=== PATIENT | female | born 2000 | race Caucasian/White ===

== ENCOUNTER 2019-12-03 17:53 | Inpatient (IN) | payer MEDICAID ==
[2019-12-03] MEDS ORDERED: BETAMET ACET/BETAMET NA INJ 6 MG/1 ML IM ONE (18:12)
[2019-12-03] MEDS ORDERED: RINGERS SOLUTION,LACTATED 1,000 ML IV ONE (18:13)
[2019-12-03] MEDS ORDERED: BETAMET ACET/BETAMET NA INJ 6 MG/1 ML ONE (18:18)
[2019-12-03] MEDS ORDERED: AMPICILLIN SOD INJ 2 GM VIAL ONE (18:19)
[2019-12-03 18:46] LABS: ABSOLUTE BASOPHILS # (AUTO) 0.1 10^3/uL (0.0-0.2); ABSOLUTE EOSINOPHILS # (AUTO) 0.1 10^3/uL (0.0-0.6); ABSOLUTE LYMPHOCYTES (AUTO) 2.5 10^3/uL (0.5-4.7); ABSOLUTE MONOCYTES (AUTO) 0.7 10^3/uL (0.1-1.4); ABSOLUTE NEUT (AUTO) 10.3 10^3/uL (1.7-8.2); BASOPHILS % (AUTO) 0.5 % (0-2); EOSINOPHILS % (AUTO) 0.5 % (0-6); HEMATOCRIT 36.8 % (36.0-47.0); HEMOGLOBIN 12.5 g/dL (12.0-15.5); LYMPHOCYTES % (AUTO) 18.4 % (13-45); MEAN CORPUSCULAR VOLUME 88 fl (80-97); MONOCYTES % (AUTO) 5.1 % (3-13); PLATELET COUNT 171 10^3/uL (150-450); RED BLOOD COUNT 4.17 10^6/uL (3.72-5.28); RED CELL DISTRIBUTION WIDTH 12.5 % (11.5-14.0); SEGMENTED NEUTROPHILS % (AUTO) 75.5 % (42-78); TOTAL CELLS COUNTED % (AUTO) 100 %; WHITE BLOOD COUNT 13.6 10^3/uL (4.0-10.5)
[2019-12-03] MEDS ORDERED: DIPHENHYDRAMINE HCL 50 MG/ML VIAL ONE (18:55)
[2019-12-03] MEDS ORDERED: AMPICILLIN SODIUM 2 GM in NORMAL SALINE 100 ML IV ONE (19:00)
--- NOTE | 2019-12-03 19:46 | Admission Physical ---
Datetime Report Generated by CPN: 12/03/2019 19:45 CURRENT ADMISSION Chief Complaint: Other Chief Complaint Other: Spontaneous Rupture of Membranes--verified in the office Indication for Induction: Not Applicable Admit Impression : , Intrauterine ; No Active Labor; Ruptured Membranes Admit Plan: Admit to Unit; Initiate Labor Augmentation Protocol ALLERGIES Medication Allergies: No Medication Allergies: ampicillin (12/03/2019) Latex: No Latex Allergies OBSTETRICAL HISTORY EDC: 01/03/2020 00:00 : 3 Para: 1 Term: 1 : 0 SAB: 0 Ectopic: 0 Livin Cesareans: 0 VBACs: 0 Multiple Births: 0 Gestational Diabetes: No Rh Sensitization: No Incompetent Cervix: No NENO: No Infertility: No ART Treatment: No Uterine Anomaly: No IUGR: No Hx Previous C/S: No Macrosomia: No Hx Loss/Stillborn: No PIH: No Hx : No Placenta Previa/Abruption: No Depression/PP Depression: No PTL/PROM: No Post Hemorrhage: No Current Procedures: Ultrasound; NST Obstetrical History Comments: G1 - SAB at 13 yrs old G2 - 2017 G3 - Current SEE RECORDS Alcohol: No Marijuana : No Cocaine: No Other Illicit Drugs: No Cigarettes: Current Some Day Smoker. [id number] Cigarette Frequency: < 5 per day Cigarette Comments: verbalized she stopped 3 months ago MEDICAL HISTORY Diabetes: No Blood Transfusion: No Pulmonary Disease (Asthma, TB): No Breast Disease: No Hypertension: No Sole Rounder Surgery: No Heart Disease: No Hosp/Surgery: No Autoimmune Disorder: No Anesthetic Complications: No Kidney Disease: No Abnormal Pap Smear: No Neuro/Epilepsy: No Psychiatric Disorders: No Other Medical Diseases: No Hepatitis/Liver Disease: No Significant Family History: No Varicosities/Phlebitis: No Trauma/Violence : No Thyroid Dysfunction: No INFECTIOUS HISTORY Gonorrhea: No Genital Herpes: No Chlamydia: No Tuberculosis: No Syphilis: No Hepatitis: No HIV/AIDS Exposure: No Rash or Viral Illness: No HPV: No PHYSICAL EXAM General: Normal HEENT: Normal Neurologic: Normal Thyroid: Normal Heart: Normal Lungs: Normal Breast: Normal Back: Normal Abdomen: Normal Genitourinary Exam: Normal Extremities: Normal DTRs: Normal Pelvic Type: Adequate Vital Signs: Reviewed; Within Normal Limits VAGINAL EXAM Dilatation: N/A Contraction Comments: irregular MEMBRANES Pooling: Positive Membranes: Ruptured Amniotic Fluid Color: Clear FETUS A EGA: 35.4 Monitoring: External US FHR- Baseline: 120s Variability: Moderate 6-25bpm Accelerations: 15X15 Decelerations: None FHR Category: Category I Admit Comment: This w/ an IUP at 35.4 presents to [facility] after being evaluated at the office with PPROM. Her suspicion was verified at the office. She reports good movement. Pt given rescue dose of Betamethsone and Ampicillin started for GBS prophylaxis. Pt is currently comfortable. She will be giving the baby up for adoption. PLANS FOR LABOR AND DELIVERY Labor and Delivery: Other, Specify Pain Management: Epidural Feeding Preference: Formula Benefit of Breast Feed Discussed: Yes Circumcision: No INFORMED CONSENT Signature: with User ID: [email or web address]
[2019-12-03 19:53] LABS: URINE AMPHETAMINES SCREEN NEGATIVE; URINE BARBITURATES SCREEN NEGATIVE; URINE BENZODIAZEPINES SCREEN NEGATIVE; URINE COCAINE SCREEN NEGATIVE; URINE MARIJUANA (THC) SCREEN NEGATIVE; URINE METHADONE SCREEN NEGATIVE; URINE PHENCYCLIDINE SCREEN NEGATIVE
[2019-12-03] MEDS ORDERED: CLINDAMYCIN 900 MG/D5W RTU 900 MG/50 ML RTUPB IV ONE (19:57)
[2019-12-03 21:04] LABS: CHLAM PCR NOT DETECTED (NOT DETECT)
[2019-12-03] MEDS ORDERED: OXYTOCIN/NORMAL SALINE 20 UNIT/1,000 ML RTUINJ ONE (22:50)
[2019-12-04] MEDS ORDERED: CLINDAMYCIN 900 MG/D5W RTU 900 MG/50 ML RTUPB IV ONE (03:55)
[2019-12-04] MEDS: CLINDAMYCIN 900 MG/D5W RTU 900 MG/50 ML RTUPB IV SCH ×4 (04:04→21:07)
[2019-12-04] MEDS ORDERED: EPHEDRINE SULFATE INJ 50 MG/1 ML AMPULE ONE (06:51)
[2019-12-04] MEDS ORDERED: FENTANYL/BUPIVACAINE/NS/PF 300 MCG/150 ML RTUINJ EPI ONE (06:52)
[2019-12-04] MEDS ORDERED: BUPIVACAINE HCL 0.25 % INJ/PF (2.5 MG/1 ML) 30 ML VIAL ONE (06:52)
[2019-12-04] MEDS ORDERED: OXYTOCIN 10 UNIT/ML VIAL ONE (07:12)
[2019-12-04] MEDS ORDERED: LIDOCAINE 1% INJ-PF (10 MG/ML) 30 ML SDV ONE (07:12)
[2019-12-04] MEDS ORDERED: MISOPROSTOL 0.2 MG TABLET ONE (07:12)
[2019-12-04] MEDS ORDERED: DIPH/PERTUSS(ACELL)/TETANUS VAC/PF 0.5 ML SYR (>=10YO) IM PRN (07:53)
[2019-12-04] MEDS ORDERED: DIBUCAINE 1% OINTMENT 28 GM TP PRN (07:53)
[2019-12-04] MEDS ORDERED: MISOPROSTOL 0.2 MG TABLET PR PRN (07:53)
[2019-12-04] MEDS ORDERED: OXYTOCIN/NORMAL SALINE 20 UNIT/1,000 ML RTUINJ IV PRN (07:53)
[2019-12-04] MEDS ORDERED: BENZOCAINE/MENTHOL AEROSOL SPRAY 56 ML TOP PRN (07:53)
[2019-12-04] MEDS ORDERED: ZOLPIDEM TARTRATE 5 MG TABLET PO PRN (07:53)
[2019-12-04] MEDS ORDERED: FERROUS SULFATE 325 MG TABLET PO ONE (09:17)
[2019-12-04] MEDS ORDERED: SENNOSIDES/DOCUSATE 8.6-50 MG 1 EACH TABLET ONE (09:17)
[2019-12-04] MEDS ORDERED: DOCUSATE SODIUM 100 MG CAPSULE ONE (09:17)
[2019-12-04] MEDS ORDERED: PRENATAL VITAMIN W DHA CAPSULE PO ONE (09:17)
[2019-12-04] MEDS: FERROUS SULFATE 325 MG TABLET PO SCH ×2 (09:23→18:45)
[2019-12-04] MEDS: DOCUSATE SODIUM 100 MG CAPSULE PO SCH ×2 (09:23→18:45)
[2019-12-04] MEDS: PRENATAL VITAMIN W DHA CAPSULE PO SCH (09:23)
[2019-12-04] MEDS: SENNOSIDES/DOCUSATE 8.6-50 MG 1 EACH TABLET PO SCH (09:24)
--- NOTE | 2019-12-04 10:28 | Delivery Summary ---
Del Sum A-C Datetime Report Generated by CPN: 12/04/2019 10:27 DELIVERY PERSONNEL DELIVERY PERSONNEL: [id number] Delivery Doctor:: Seema Smith MD Labor and Delivery Nurse:: Paris Cullen RN Nursery Nurse:: Gage Rahman RN Nursery Nurse:: Mikayla Alonso RN Surface Hydrologist/PIT FURNACE OPERATOR: Roxy Link CNA II Surface Hydrologist/PIT FURNACE OPERATOR: Magda Espinoza, CLINICAL INFORMATION SYSTEMS DIRECTOR MATERNAL INFORMATION Delivery Anesthesia: Epidural Medications After Delivery: Pitocin Drip 20 Units/1000ml NSS; Cytotec 1000mcg Per Rectum/Vagina Delivery QBL: 200 Delivery QBL Comment: 200 Maternal Complications: Precipitous Labor (<3hrs) Provider Comments: of a viable male at 0738 w/ an OA presentation; APGARS pending; no lacs LABOR SUMMARY EDC: 01/03/2020 00:00 No. Babies in Womb: 1 Attempted: No Labor Anesthesia: Epidural LABOR INFORMATION Reason for Induction: Not Applicable Complete Dilatation: 12/04/2019 07:00 Oxytocin: Augmentation Group B Beta Strep: Unknown Antibiotics # of Doses: 2 Antibiotics Time of Last Dose: 0400 Name of Antibiotic Given: Clindamycin Steroids Given: Partial Course Reason Steroids Not Administered: Not Applicable MEMBRANES Membranes Rupture Method: Spontaneous Rupture of Membranes: 12/03/2019 15:00 Length of Rupture (hr): 16.63 Amniotic Fluid Color: Clear Amniotic Fluid Amount: Large Amniotic Fluid Odor: Normal STAGES OF LABOR Stage 2 hr: 0 Stage 2 min: 38 Stage 3 hr: 0 Stage 3 min: 4 VAGINAL DELIVERY Episiotomy: None Laceration #1: None Laceration Extension #1: N/A Laceration Repair: Not Applicable Sponge Count Correct: Yes Sharps Count Correct: Yes CSECTION DELIVERY Primary Indication: N/A Secondary Indication: N/A CSection Incidence: N/A Labor: N/A Elective: N/A CSection Incision: N/A BABY A INFORMATION Infant Delivery Date/Time: 12/04/2019 07:38 Method of Delivery: Vaginal Born in Route : No : N/A Forceps: N/A Vacuum Extraction: N/A Shoulder Dystocia : No PRESENTATION/POSITION BABY A Presentation: Cephalic Cephalic Presentation: Vertex Vertex Position: Occipital Anterior Breech Presentation: N/A PLACENTA INFORMATION BABY A Placenta Delivery Time : 12/04/2019 07:42 Placenta Method of Delivery: Spontaneous Placenta Status: Delivered SCORES BABY A Heart Rate 1 min: >100 bpm Resp Effort 1 min: Slow, Irregular Reflex Irritability 1 min: Cough or Sneeze or Pulls Away Muscle Tone 1 min: Active Motion Color 1 min: Body [place], Extremities Blue Resuscitation Effort 1 min: Tactile Stimulation SCORE 1 MIN: 8 Heart Rate 5 min: >100 bpm Resp Effort 5 min: Good Cry Reflex Irritability 5 min: Cough or Sneeze or Pulls Away Muscle Tone 5 min: Active Motion Color 5 min: Body [place], Extremities Blue Resuscitation Effort 5 min: Tactile Stimulation SCORE 5 MIN: 9 INFANT INFORMATION BABY A Gestational Age at Delivery: 35.5 Gestational Status: Late - 34- 36.6 Weeks Infant Outcome : Liveborn Condition : Stable Infant Sex: Male IDENTIFICATION BABY A Infant Verification Date/Time: 12/04/2019 07:52 ID Band Number: [id number] Mother's Name Verified: Yes Infant RN Verifying Infant: JNiebuhr,RN Additional Verifying Personnel: AMorgan,RN WEIGHT/LENGTH BABY A Infant Birthweight (gm): 2530 Infant Weight (lb): 5 Weight (oz): 9 Infant Length (in): 17.50 Length (cm): 44.45 CORD INFORMATION BABY A No. Cord Vessels: 3 Nuchal Cord : N/A Cord Blood Taken: Yes-For Storage (Mom's Blood type +) Suction: Mouth ASSESSMENT BABY A Skin to Skin: Yes BABY B INFORMATION : N/A SIGNATURES Signature: with User ID: [email or web address]
[2019-12-04] MEDS: IBUPROFEN 800 MG TABLET PO SCH ×2 (15:01→21:08)
[2019-12-05] MEDS: CLINDAMYCIN 900 MG/D5W RTU 900 MG/50 ML RTUPB IV SCH (05:04)
[2019-12-05] MEDS: IBUPROFEN 800 MG TABLET PO SCH (05:05)
[2019-12-05 06:57] LABS: HEMATOCRIT 34.6 % (36.0-47.0); HEMOGLOBIN 11.9 g/dL (12.0-15.5); MEAN CORPUSCULAR HEMOGLOBIN 30.2 pg (27.0-33.4); MEAN CORPUSCULAR HGB CONC 34.5 g/dL (32.0-36.0); MEAN CORPUSCULAR VOLUME 88 fl (80-97); PLATELET COUNT 173 10^3/uL (150-450); RED BLOOD COUNT 3.95 10^6/uL (3.72-5.28); RED CELL DISTRIBUTION WIDTH 12.6 % (11.5-14.0); WHITE BLOOD COUNT 19.9 10^3/uL (4.0-10.5)
[2019-12-05 10:49] VITALS: BP 100/64
[2019-12-05] MEDS: PRENATAL VITAMIN W DHA CAPSULE PO SCH (10:50)
[2019-12-05] MEDS: FERROUS SULFATE 325 MG TABLET PO SCH (10:50)
[2019-12-05] MEDS: SENNOSIDES/DOCUSATE 8.6-50 MG 1 EACH TABLET PO SCH (10:58)
[2019-12-05] MEDS: DOCUSATE SODIUM 100 MG CAPSULE PO SCH (10:58)
--- NOTE | 2019-12-05 10:58 | PDOC DISCHARGE SUMMARY ---
Impression - Admit/DC Date/PCP Admission Date/Primary Care Provider: 12/03/19 17:53 JESUS العراقي, Discharge Date: 12/05/19 - Discharge Diagnosis (1) premature rupture of membranes (PPROM) delivered, current hospitalization Is this a current diagnosis for this admission?: Yes (2) Normal vaginal delivery Is this a current diagnosis for this admission?: Yes - Additional Information Discharge Diet: Regular Discharge Activity: Balance Activity w/Rest, Pelvic Rest Referrals: [facility] [Provider Group] Prescriptions: Ibuprofen [Motrin 800 mg Tablet] 800 mg PO Q8HP PRN #60 tablet PRN Reason: Home Medications: No122/Iron/Folic Acid [ Multi Tablet] 1 each PO DAILY 12/03/19 Ibuprofen [Motrin 800 mg Tablet] 800 mg PO Q8HP PRN #60 tablet 12/05/19 HPI Gestational Age: 35+4 Reason(s) for Admission: Induction of Labor, PROM Procedures: NST Intrapartum Procedure(s): Spontaneous Vaginal Delivery Results Laboratory Results: WBC 19.9 10^3/uL (4.0-10.5) H 12/05/19 06:13 RBC 3.95 10^6/uL (3.72-5.28) 12/05/19 06:13 Hgb 11.9 g/dL (12.0-15.5) L 12/05/19 06:13 Hct 34.6 % (36.0-47.0) L 12/05/19 06:13 MCV 88 fl (80-97) 12/05/19 06:13 MCH 30.2 pg (27.0-33.4) 12/05/19 06:13 MCHC 34.5 g/dL (32.0-36.0) 12/05/19 06:13 RDW 12.6 % (11.5-14.0) 12/05/19 06:13 Plt Count 173 10^3/uL (150-450) 12/05/19 06:13 Lymph % (Auto) 18.4 % (13-45) 12/03/19 18:32 [place]ancock % (Auto) 5.1 % (3-13) 12/03/19 18:32 Eos % (Auto) 0.5 % (0-6) 02/05/20 18:32 Baso % (Auto) 0.5 % (0-2) 12/03/19 18:32 Absolute Neuts (auto) 10.3 10^3/uL (1.7-8.2) H 12/03/19 18:32 Absolute Lymphs (auto) 2.5 10^3/uL (0.5-4.7) 12/03/19 18:32 Absolute Monos (auto) 0.7 10^3/uL (0.1-1.4) 12/03/19 18:32 Absolute Eos (auto) 0.1 10^3/uL (0.0-0.6) 12/03/19 18:32 Absolute Basos (auto) 0.1 10^3/uL (0.0-0.2) 12/03/19 18:32 Seg Neutrophils % 75.5 % (42-78) 12/03/19 18:32 Urine Opiates Screen NEGATIVE 12/03/19 18:08 Urine Methadone Screen NEGATIVE 12/03/19 18:08 Ur Barbiturates Screen NEGATIVE 12/03/19 18:08 Ur Phencyclidine Scrn NEGATIVE 12/03/19 18:08 Ur Amphetamines Screen NEGATIVE 12/03/19 18:08 U Benzodiazepines Scrn NEGATIVE 12/03/19 18:08 Urine Cocaine Screen NEGATIVE 12/03/19 18:08 U Marijuana (THC) Screen NEGATIVE 12/03/19 18:08 RPR NONREACTIVE (NONREACTIVE) 12/03/19 18:32 Chlamydia DNA (PCR) NOT DETECTED (NOT DETECT) 12/03/19 18:08 N.gonorrhoeae DNA (PCR) NOT DETECTED (NOT DETECT) 12/03/19 18:08 Blood Type A POSITIVE 12/03/19 18:32 Antibody Screen NEGATIVE 12/03/19 18:32 Plan Plan of Treatment: follow up at [facility] in 2 weeks for depression screen and nexplanon counseling
== END 2019-12-05 12:50 | disposition home or self-care (01) | DRG 807 ==
LOC: LR 17:53 → 2S 12-04 10:15
PROVIDERS: ADMIT Obstetrics & Gynecology; ATTEND Obstetrics & Gynecology
PROC: 10E0XZZ Delivery of Products of Conception, External Approach (ICD-10-PCS; principal; 2019-12-04)
PROC: 3E0234Z Introduction of Serum, Toxoid and Vaccine into Muscle, Percutaneous Approach (ICD-10-PCS; 2019-12-04)
DX: O42.013 Preterm premature rupture of membranes, onset of labor within 24 hours of rupture, third trimester (principal); Z37.0 Single live birth; O62.3 Precipitate labor; O99.334 Smoking (tobacco) complicating childbirth; F17.210 Nicotine dependence, cigarettes, uncomplicated; Z3A.35 35 weeks gestation of pregnancy; Z23 Encounter for immunization; Z28.21 Immunization not carried out because of patient refusal; Z88.1 Allergy status to other antibiotic agents
CPT/HCPCS: 36415; 80307; 85025; 85027; 86592; 86850; 86900; 86901; 87077; 87081; 87491; 87591; 88307; 90715; J0290; J0702; J1200; J2590; J3010; J3490; J7050